=== PATIENT | male | born 1960 | race Caucasian/White ===

== ENCOUNTER 2020-03-25 08:41 | Outpatient (CLI) | payer BC, SELFPAY ==
--- NOTE | ~2020-03-25 | US_ITS ---
EXAMINATION: US thyroid DATE: 03/25/2020 09:29 INDICATION: Localized swelling, mass and lump, neck. TECHNIQUE: Multiple ultrasound images of the thyroid were obtained. COMPARISON: None. FINDINGS: The right thyroid lobe measures 5.2 x 1.7 x 1.6 cm. The left thyroid lobe measures 3.8 x 1.2 x 1.2 c m. In the right thyroid lobe, there is a 7 mm mixed cystic and solid, hypoechoic, [id number]-ghvz-vbgo no dule with smooth margin without echogenic foci (TI-RADS TR3). In the right thyroid lobe, there is a 6 mm mixed cystic and solid, hypoechoic, upsbg-jiii-aajy nodule with smooth margin without echogenic f oci (TR3). In the left thyroid lobe, there is a 6 mm solid, hypoechoic, yhwgt-[id number]-[id number] nodule with i ll-defined margin without echogenic foci (TR4). IMPRESSION: 1. Small thyroid nodules, likely not clinically significant. No follow-up is needed. Reviewed, dictated and finalized at location A. IMPRESSION: 1. Small thyroid nodules, likely not clinically significant. No follow-up is ne eded.
== END 2020-03-25 08:42 | disposition home or self-care (01) ==
PROVIDERS: PCP Family Medicine; Visit Provider Nurse Practitioner Family
DX: R22.1 Localized swelling, mass and lump, neck (principal); E04.2 Nontoxic multinodular goiter
CPT/HCPCS: 76536

== ENCOUNTER 2022-01-19 01:02 | Day surgery (SDC) | payer BC, SELFPAY ==
[2022-01-08 13:40] VITALS: BMI 26.6
--- NOTE | 2022-01-16 14:15 | PM.HPGS ---
History of Present Illness History of Present Illness Consent: Risks, benefits, and alternatives have been discussed and questions answered. Patient agrees to proceed with procedure. Chief complaint: neoplasm screening Narrative: Carrillo Whitley is a 61 year old male Referred for colon cancer screening. He is not certain when he had his last colonoscopy. Lately he has been seen blood in his stools. It is always bright red and he feels that his due to hemorrhoid Review of Systems Review of Systems: All systems reviewed & are unremarkable except as noted in HPI and below PMFSH Past Medical History Medical History BMI 26.0-26.9,adult Family History Family History Grandparent Family history of malignant neoplasm of breast Father Lung cancer COPD (chronic obstructive pulmonary disease) Bladder cancer Mother H/O cancer of gall bladder Sibling No problems noted. 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 Gender identity (if verbalized by the patient): Male Spiritual care concerns: No Meds Home Medications and Allergies Home Medications Medication Instructions Recorded Confirmed Type meloxicam 15 mg tablet 15 mg PO DAILY #30 tablet 01/05/22 01/19/22 Rx Allergies Allergy/AdvReac Type Severity Reaction Status Date / Time No Known Allergies Allergy Mild Verified 01/19/22 13:08 Exam Resp: Auscultation: clear to auscultation bilaterally Cardio: Rate: regular rate Rhythm: regular rhythm GI: GI Palp: Yes Soft to palpation and No Tenderness to palpation present (GI) Assessment and Plan Assessment and plan (1) Screening for malignant neoplasm of colon: Code(s): Z12.11 - Encounter for screening for malignant neoplasm of colon Status: Acute Assessment and Plan: Colonoscopy with possible biopsy or polypectomy or cautery or injection of substances.
[2022-01-19 13:09] VITALS: BP 146/78; PULSE 63; RESP 18; TEMP 36.4; O2SAT 99
[2022-01-19] MEDS: LACTATED RINGERS 1,000 ML 150 ML IV CONT (13:14)
--- NOTE | 2022-01-19 13:29 | P.PNAN_ITS ---
Anes - Initial Pre Proc Eval Procedure: Operation Date: 01/19/22 14:00 Proposed Procedures p Screening Colonoscopy - Chaitanya Pena MD Date/Time: 01/19/22 13:29 Surgeon: Chaitanya Pena MD Pre Op Diagnosis: neoplasm screening Patient Data Age: 61 Gender: M Height: 1.75 m Weight: 78.9 kg Last Vital Signs Temp 97.6 F 01/19/22 13:09 Pulse 63 01/19/22 13:09 Resp 18 01/19/22 13:09 BP 146/78 H 01/19/22 13:09 Pulse Ox 99 01/19/22 13:09 Allergies Allergy/AdvReac Type Severity Reaction Status Date / Time No Known Allergies Allergy Mild Verified 01/19/22 13:08 Home Medications Medication Instructions Recorded Confirmed Type meloxicam 15 mg tablet 15 mg PO DAILY #30 tablet 01/05/22 01/19/22 Rx Patient hx anesthesia problems: none Family hx anesthesia problems: none Results Review: All pre-operative results and documents have been reviewed as part of the pre-operative evaluation. [facility] Past Medical History Medical History BMI 26.0-26.9,adult Family History Family History Grandparent Family history of malignant neoplasm of breast Father Lung cancer COPD (chronic obstructive pulmonary disease) Bladder cancer Mother H/O cancer of gall bladder Sibling No problems noted. 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 Informed Consent: The patient's anesthetic plan and its attendant risks and benefits were discussed with the patient/family/POA. Questions were solicited and answers provided to the satisfaction of the patient/family/POA.
[2022-01-19 14:13] VITALS: BP 110/71; PULSE 66; RESP 16; O2SAT 97
[2022-01-19 14:23] VITALS: BP 118/76; PULSE 64; RESP 18; O2SAT 96
[2022-01-19 14:33] VITALS: BP 135/81; PULSE 70; RESP 20; O2SAT 96
== END 2022-01-19 14:54 | disposition home or self-care (01) ==
PROVIDERS: PCP Family Medicine; Visit Provider Internal Medicine Gastroenterology
PROC: 0DJD8ZZ Inspection of Lower Intestinal Tract, Via Natural or Artificial Opening Endoscopic (ICD-10-PCS; CPT 45378; principal; 2022-01-19 14:00)
DX: Z12.11 Encounter for screening for malignant neoplasm of colon (principal); K92.1 Melena; K64.4 Residual hemorrhoidal skin tags; K64.8 Other hemorrhoids; K57.30 Diverticulosis of large intestine without perforation or abscess without bleeding
CPT/HCPCS: 45378; J2704; J7120

== ENCOUNTER → 2022-05-07 14:59 | Outpatient (CLI) | payer BC, SELFPAY ==
--- NOTE | ~2022-05-07 | XR_ITS ---
EXAMINATION: XR chest 2V 05/07/2022 15:07 INDICATION: Cough PROCEDURE: 2 view chest COMPARISON: No prior studies for comparison. FINDINGS: The lungs are clear. The cardiomediastinal silhouette is within normal limits. There are no pleural effusions. There is no pneumothorax suspected. IMPRESSION: 1: NO ACUTE CARDIOPULMONARY DISEASE. Reviewed, dictated and finalized at location B.
== END ==
PROVIDERS: PCP Family Medicine; Visit Provider Nurse Practitioner Family
DX: R05.9 Cough, unspecified (principal)
CPT/HCPCS: 71046

== ENCOUNTER 2022-08-26 08:11 | Emergency (ER) | payer BC, SELFPAY ==
--- NOTE | ~2022-08-26 | XR_ITS ---
EXAMINATION: XR chest 2V 08/26/2022 09:00 INDICATION: Cough and wheezing. PROCEDURE: 2 view chest COMPARISON: 05/07/2022 FINDINGS: The lungs are clear. The cardiomediastinal silhouette is within normal limits. There are no pleural effusions. There is no pneumothorax suspected. There is asymmetry of the right apex, mos t likely prominent costal cartilage calcification of the first rib, although further evaluation with CT is recommended to exclude underlying parenchymal nodule. IMPRESSION: 1: Asymmetry of the right apex, most likely prominent costal cartilage calcification of the first ri b, although further evaluation with CT is recommended to exclude underlying parenchymal nodule. Reviewed, dictated and finalized at location A. D ADVISOR IMPRESSION: 1: Asymmetry of the right apex, most likely prominent costal cartilage calcifi cation of the first rib, although further evaluation with CT is recommended to exclude underlying parenchymal nodule.
[2022-08-26 08:18] VITALS: BP 142/90; PULSE 92; RESP 16; TEMP 37.4; O2SAT 98
--- NOTE | 2022-08-26 08:37 | ED.URI ---
HPI - URI/Sore Throat General Chief Complaint: Upper Respiratory Infection Stated Complaint: COUGH/SINUS DRAINAGE/CONGESTION/CHILLS/SWEATS Time Seen by Provider: 08/26/22 08:38 Source: patient and RN notes reviewed Mode of arrival: ambulatory Limitations: no limitations History of Present Illness HPI Narrative: 61-year-old male presented for complaint of cough with associated sinus congestion, fevers/chills for 4 days. He endorses at the onset he felt a scratchy throat and has continued to have severe episodes of coughing which resulted in shortness of breath and wheezing. He denies shortness of breath or wheezing with exertion. Endorses waking with sweaty/clammy skin. He denies chest pain, palpitations, nausea, vomiting, diarrhea. Endorses temperature has been at the highest 99.5. Taking ibuprofen about 3 times a day for symptoms. MD elicited complaint: cough Related Data Allergies Allergy/AdvReac Type Severity Reaction Status Date / Time No Known Allergies Allergy Mild Verified 05/07/22 07:47 Review of Systems Review of Systems: CONSTITUTIONAL: denies malaise EYES: Denies visual changes, redness, or discharge ENT: Reports rhinorrhea, congestion, denies otalgia, sore throat CARDIOVASCULAR: Denies chest pain, palpitations, edema RESPIRATORY: per HPI GASTROINTESTINAL: Denies abdominal pain, nausea, vomiting, diarrhea SKIN: Denies rash or itching MUSCULOSKELETAL: Denies myalgia PMFSH Past Medical History Medical History BMI 25.0-25.9,adult BMI 26.0-26.9,adult Family History Family History Grandparent Family history of malignant neoplasm of breast Father Lung cancer COPD (chronic obstructive pulmonary disease) Bladder cancer Mother H/O cancer of gall bladder Sibling No problems noted. 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 TMs pearly garcía with dull light reflex bilaterally; no tragal tenderness. Oropharynx normal without lesions or exudate, no drooling, no hoarseness, no trismus, uvula midline. CHEST: End inspiratory wheezing throughout all shukla. Unlabored. No respiratory distress, speaks in full sentences. HEART: Regular rate and rhythm. No murmur heard. SKIN: Warm, dry, no rash. NEURO: Alert and oriented x3. PSYCH: Normal mood and affect Course Course Emergency Course: Patient is aware of diagnosis, understands and agrees to treatment plan. Anticipatory guidance given. Patient agrees to follow-up as directed and is aware of reasons to seek care at the emergency department. Portions of this record may have been created with voice recognition software Level of Care: Express Care Visit Vital Signs Vital signs: Vital Signs Temperature 99.4 F 08/26/22 08:18 Pulse Rate 92 08/26/22 08:18 Respiratory Rate 16 08/26/22 08:18 Blood Pressure 142/90 H 08/26/22 08:18 Pulse Oximetry 98 08/26/22 08:18 Oxygen Delivery Room Air 08/26/22 08:18 Temperature 99.4 F 08/26/22 08:18 Pulse Rate 92 08/26/22 08:18 Respiratory Rate 16 08/26/22 08:18 Blood Pressure 142/90 H 08/26/22 08:18 Pulse Oximetry 98 08/26/22 08:18 Oxygen Delivery Room Air 08/26/22 08:18 reviewed MDM - URI/Sore Throat MDM Narrative Medical decision making narrative: Chest x-ray result reviewed with patient. Advised to f/u with pcp regarding result. Advised supportive measures
== END 2022-08-26 09:23 | disposition home or self-care (01) ==
PROVIDERS: Emergency Provider Nurse Practitioner Family; PCP Family Medicine
DX: J40 Bronchitis, not specified as acute or chronic (principal); R91.8 Other nonspecific abnormal finding of lung field
CPT/HCPCS: 71046; 99213; G0463

== ENCOUNTER → 2022-09-17 09:10 | Outpatient (CLI) | payer BC, SELFPAY ==
--- NOTE | ~2022-09-17 | CT_ITS ---
EXAMINATION: CT chest high resolution wo ne DATE: 09/17/2022 09:24 INDICATION: Lung nodule TECHNIQUE: Computed tomography (CT) of the chest was performed without intravenous contrast. The dose -length product (DLP) was 296.43 mGy-cm. Automated exposure control and iterative reconstruction tech [employer] were employed. COMPARISON: 08/26/2022 FINDINGS: The lungs are free of acute opacities. No pleural effusion or pneumothorax. Scattered small pulmonary nodules measure up to 3 mm. There is hypertrophic change at the right first rib costochond ral junction accounting for the radiographic finding in question. No pathologically enlarged thoracic lymph nodes are identified. The heart size is normal. Calcified coronary artery atherosclerosis is n oted. There is mild thoracic spondylosis. IMPRESSION: 1. Hypertrophic change at the right first rib costochondral junction accounting for the radiographic finding in question. 2. Scattered small pulmonary nodules measuring up to 3 mm. If the patient has no risk factors for mal ignancy, no further follow up is required. If there are risk factors for malignancy (i.e., history o f smoking, asbestos or radiation exposure), consider followup CT in 12 months. Reviewed, dictated and finalized at location L. RAL PRODUCTION MANAGER IMPRESSION: 1. Hypertrophic change at the right first rib costochondral junction accounting for the radiographic finding in question. 2. Scattered small pulmonary nodules measuring up to 3 mm. If the patient has n o risk factors for malignancy, no further follow up is required. If there are risk factors for malignancy (i.e., history of smoking, asbestos or radiation ex posure), consider followup CT in 12 months.
== END ==
PROVIDERS: PCP Family Medicine; Visit Provider Nurse Practitioner Family
DX: R91.8 Other nonspecific abnormal finding of lung field (principal); R93.89 Abnormal findings on diagnostic imaging of other specified body structures
CPT/HCPCS: 71250

== ENCOUNTER 2023-04-05 12:41 | Emergency (ER) | payer BC, SELFPAY ==
--- NOTE | ~2023-04-05 | CT_ITS ---
EXAMINATION: CT abdomen pelvis wo con DATE: 04/05/2023 15:46 INDICATION: Left flank pain. Hematuria. TECHNIQUE: Computed tomography (CT) of the abdomen and pelvis was performed without intravenous contr ast. Automated exposure control and iterative reconstruction technique were employed. The dose-length product was 585.70 mGy-cm. COMPARISON: CT abdomen pelvis 07/29/2008 FINDINGS: The visualized portions of the lung bases demonstrate mild peripheral reticular opacities, likely chronic lung disease. There is a 3 mm nodule in right lower lobe, likely benign. No pleural ef fusion. The heart size is normal. No pericardial effusion. There is diffuse hepatic steatosis. The ga llbladder, spleen, pancreas, adrenal glands, and right kidney are normal. There are 3 stones in left kidney measuring up to 2 mm. There is a 3 mm stone at left ureterovesicular junction. There is mild l eft hydroureter. The prostate is mildly enlarged. There is a right inguinal hernia containing fat. Th ere is diverticulosis of the colon without evidence of diverticulitis. There are no dilated loops of bowel. The appendix is normal. There are no pathologically enlarged lymph nodes. There is no free int raperitoneal fluid. There is mild thoracic and lumbar spondylosis. IMPRESSION: 1. 3 mm stone at left ureterovesicular junction with mild left hydroureter. 2. Small nonobstructing left kidney stones. Reviewed, dictated and finalized at location A.
[2023-04-05 13:01] VITALS: BP 130/88; PULSE 77; RESP 18; TEMP 36.4; O2SAT 95
[2023-04-05 13:16] LABS: Basophils Percent Auto 0.6 % (0.2-1.2); Eosinophils Absolute Auto 0.1 K/mm3 (0-0.3); Eosinophils Percent Auto 1.9 % (0-4.4); Hematocrit 48.3 % (42.0-52.0); Hemoglobin 16.3 g/dL (14.0-18.0); Immature Granulocyte Absolute 0.02 K/mm3 (0.00-0.031); Immature Granulocyte Percent A 0.3 % (0-0.5); Lymphocytes Absolute Auto 2.37 K/mm3 (0.9-3.2); Lymphocytes Percent Auto 34.3 % (18.3-44.2); Mean Corpuscular HGB Conc 33.7 g/dl (32-36); Mean Corpuscular Hemoglobin 29.6 pg (26-34); Mean Corpuscular Volume 87.8 fl (80-100); Mean Platelet Volume 9.4 fl (7.4-10.4); Monocytes Absolute Auto 0.7 K/mm3 (0.1-0.6); Monocytes Percent Auto 9.7 % (2.6-8.5); Neutrophils Absolute Auto 3.7 K/mm3 (1.3-6.7); Neutrophils Percent Auto 53.2 % (45.5-73.1); Platelet Count Result 183 k/mm3 (150-375); Red Cell Distribution Width 13.6 % (11.5-14.5); White Blood Count 6.9 K/mm3 (4.5-10.0)
[2023-04-05 13:29] LABS: Alanine Aminotransferase 40 U/L (6-50); Albumin Level 4.6 g/dL (3.5-5.1); Alkaline Phosphatase 98 U/L (38-126); Anion Gap 14 mmol/L (8-16); Aspartate Amino Transferase 38 U/L (17-59); Bilirubin,Total 0.6 mg/dL (0.2-1.3); Blood Urea Nitrogen 16 mg/dL (9-20); Calcium 9.5 mg/dL (8.4-10.2); Carbon Dioxide 23 mmol/L (22-30); Chloride 106 mmol/L (98-107); Estimated CRCL calculation 66 ml/min; Estimated Glomerular Filt Rate > 60; Glucose 106 mg/dL (65-110); Potassium 3.7 mmol/L (3.4-5.0); Sodium 143 mmol/L (137-145)
[2023-04-05 13:57] LABS: Appearance Urine Cloudy (Clear); Bacteria Urine None Seen /hpf; Bilirubin Urine Negative (Negative); Blood Urine 3+ (Negative); Color Urine Yellow (Yellow); Glucose Urine UA Negative (Negative); Ketones Urine Negative (Negative); Leukocyte Esterase Ur Negative LEU/UL (Negative); Nitrate Urine Negative (Negative); Non Pathogenic Casts 0-2; Protein Urine Trace mg/dL (Negative); RBC Urine >100 /hpf (0-2); Specific Grav Ur 1.022 (1.001-1.035); Squamous Epithelial Cell Urine None seen /hpf (Few); Urobilinogen Urine 0.2 mg/dL (<2.0); WBC Urine 0-5 /hpf
[2023-04-05 14:12] LABS: Add Urine Microscopic? YES
[2023-04-05 14:51] VITALS: BP 140/83; PULSE 60; PULSE 69; RESP 15; TEMP 36.3; O2SAT 100; O2SAT 97
[2023-04-05 15:00] VITALS: PULSE 65; RESP 16; O2SAT 96
[2023-04-05 15:01] VITALS: BP 137/83; PULSE 62; RESP 12; O2SAT 100
[2023-04-05 15:15] VITALS: PULSE 68; RESP 15; O2SAT 97
--- NOTE | 2023-04-05 16:14 | ED.GENADULT ---
HPI - General Adult General Chief complaint: Urogenital-Male Stated complaint: possible kidney stone Time Seen by Provider: 04/05/23 15:36 Source: patient, RN notes reviewed and old records reviewed Mode of arrival: ambulatory Limitations: no limitations History of Present Illness HPI narrative: THis is a 62 year old male who presents for evaluation of left flank pain. Patient developed left flank pain yesterday. He states his pain has been waxing and waning. It became severe today and he states it radiated to his left lower abdominal . He denies associated nausea, vomiting, fever or chills. He reports his pain is only mild now. He rates his pain 3/1 0 currently. He has not taken any medication for pain today. Related Data Allergies Allergy/AdvReac Type Severity Reaction Status Date / Time No Known Allergies Allergy Mild Verified 04/05/23 14:58 Review of Systems Review of Systems: All systems reviewed & are unremarkable except as noted in HPI and below Constitutional: Constitutional: Denies weakness Cardiovascular: Cardiovascular: Denies syncope, Denies rapid heart rate, Denies irregular heart rhythm, Denies leg edema and Denies dyspnea Respiratory: Respiratory: Denies chest congestion, Denies hemoptysis, Denies excessive phlegm production and Denies dyspnea Gastrointestinal: Gastrointestinal: Denies abdominal pain, Denies hematochezia, Denies diarrhea and Denies vomiting Genitourinary: Genitourinary: Denies hematuria, Denies dysuria, Denies penile discharge and Denies testicular pain Musculoskeletal: Musculoskeletal: Denies joint swelling, Denies loss of height and Denies muscle weakness Neurologic: Denies syncope, Denies focal weakness and Denies weakness [facility] Past Medical History Medical History (Updated 04/05/23 @ 17:14 by Carol Brizuela MD) BMI 25.0-25.9,adult BMI 26.0-26.9,adult BMI 27.0-27.9,adult Calculus of distal left ureter History of kidney stones Family History Family History Grandparent Family history of malignant neoplasm of breast Father Lung cancer COPD (chronic obstructive pulmonary disease) Bladder cancer Mother H/O cancer of gall bladder Sibling No problems noted. 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 Gender identity (if verbalized by the patient): Male Spiritual care concerns: No Exam Const: General: no acute distress and alert Nutritional Appearance: well nourished Orientation/consciousness: patient oriented x3 HENMT: Head: normal to inspection Eyes: EOM: EOMs intact bilaterally Chest: Chest palpation & inspection: normal inspection of the chest Resp: Effort & Inspection: normal respiratory effort Auscultation: clear to auscultation bilaterally Cardio: Rate: regular rate Rhythm: regular rhythm Heart sounds: no murmurs GI: GI Palp: Yes Soft to palpation, No Tenderness to palpation present (GI), No Guarding due to palpation present (GI) and No Rigid due to palpation Auscultation: normal bowel sounds Back/Spine/Pelvis: Back: no CVA tenderness Skin: General skin exam: normal color Rashes: no rashes Wounds: no wounds Neuro: General: patient oriented x3, moves all extremities and CN's II-XI intact bilat
[2023-04-05] MEDS: ONDANSETRON INJ 4 MG/2 ML VIAL IV PUSH (16:42)
[2023-04-05] MEDS: KETOROLAC 30 MG/ML VIAL (*BKC) IV PUSH (16:42)
[2023-04-05] MEDS: TAMSULOSIN HCL 0.4 MG CAPSULE PO (16:43)
[2023-04-05 17:19] VITALS: BP 142/84; PULSE 84; RESP 16; O2SAT 99
== END 2023-04-05 17:21 | disposition home or self-care (01) ==
PROVIDERS: Emergency Provider General Practice; PCP Family Medicine
DX: N20.1 Calculus of ureter (principal); Z87.442 Personal history of urinary calculi
CPT/HCPCS: 36415; 74176; 80053; 81001; 85025; 96374; 96375; 99284; A9270; J1885; J2405

== ENCOUNTER 2023-04-05 23:10 | Observation (INO) | payer BC, SELFPAY ==
--- NOTE | ~2023-04-05 | XR_ITS ---
EXAMINATION: XR fluoroscopy no charge DATE: 04/06/2023 07:24 INDICATION: Left ureteral stone. TECHNIQUE: 4 intraoperative fluoroscopic views of the abdomen and pelvis were obtained. I wasn't pres ent. Fluoroscopy exposure time was 14 seconds. COMPARISON: CT abdomen and pelvis 04/05/2023 FINDINGS: Images demonstrate a wire in the left ureter. IMPRESSION: 1. Wire in the left ureter. Reviewed, dictated and finalized at location A. IMPRESSION: 1. Wire in the left ureter.
[2023-04-05 23:13] VITALS: BP 143/62; PULSE 98; RESP 16; TEMP 36.3; O2SAT 100
[2023-04-05 23:56] VITALS: BP 116/70; PULSE 81; RESP 16; TEMP 36.4; O2SAT 100
[2023-04-06] VITALS (15 sets, daily range): BP systolic 96–149; BP diastolic 53–82; PULSE 69–86; RESP 12–20; TEMP 36.1–37.1; O2SAT 96–100; BMI 26.7
[2023-04-06 00:04] LABS: Basophils Percent Auto 0.3 % (0.2-1.2); Eosinophils Absolute Auto 0.1 K/mm3 (0-0.3); Eosinophils Percent Auto 0.5 % (0-4.4); Hematocrit 45.5 % (42.0-52.0); Hemoglobin 15.3 g/dL (14.0-18.0); Immature Granulocyte Absolute 0.03 K/mm3 (0.00-0.031); Immature Granulocyte Percent A 0.3 % (0-0.5); Lymphocytes Absolute Auto 1.19 K/mm3 (0.9-3.2); Lymphocytes Percent Auto 12.6 % (18.3-44.2); Mean Corpuscular HGB Conc 33.6 g/dl (32-36); Mean Corpuscular Hemoglobin 29.3 pg (26-34); Mean Platelet Volume 9.4 fl (7.4-10.4); Monocytes Absolute Auto 0.7 K/mm3 (0.1-0.6); Monocytes Percent Auto 7.3 % (2.6-8.5); Neutrophils Absolute Auto 7.5 K/mm3 (1.3-6.7); Platelet Count Result 166 k/mm3 (150-375); Red Blood Count 5.23 M/mm3 (4.6-6.20); Red Cell Distribution Width 13.3 % (11.5-14.5); White Blood Count 9.4 K/mm3 (4.5-10.0)
[2023-04-06 00:18] LABS: Alanine Aminotransferase 39 U/L (6-50); Albumin Level 4.6 g/dL (3.5-5.1); Alkaline Phosphatase 101 U/L (38-126); Anion Gap 10 mmol/L (8-16); Aspartate Amino Transferase 39 U/L (17-59); Bilirubin,Total 0.7 mg/dL (0.2-1.3); Blood Urea Nitrogen 22 mg/dL (9-20); Calcium 9.6 mg/dL (8.4-10.2); Carbon Dioxide 24 mmol/L (22-30); Chloride 107 mmol/L (98-107); Estimated CRCL calculation 51 ml/min; Estimated Glomerular Filt Rate 56; Glucose 134 mg/dL (65-110); Potassium 3.4 mmol/L (3.4-5.0); Sodium 141 mmol/L (137-145)
--- NOTE | 2023-04-06 00:26 | ED.GENADULT ---
HPI - General Adult General Chief complaint: Urogenital-Male Stated complaint: kidney Time Seen by Provider: 04/05/23 23:51 Source: patient Mode of arrival: ambulatory Limitations: no limitations History of Present Illness HPI narrative: This is a 62-year-old male who presents to the ED with chief complaint of left flank and left abdominal pain after being diagnosed with a kidney stone earlier today in the emergency department. Reports intermittent nausea with no vomiting. Reports that he has been taking his [place], Toradol and Zofran as prescribed with minimal relief. He states that he was given prescription for Flomax but they did not dispense at the pharmacy and he is not sure why. He states that he has not been able to urinate since leaving the department earlier. Denies fevers, chills. Related Data Allergies Allergy/AdvReac Type Severity Reaction Status Date / Time No Known Allergies Allergy Mild Verified 04/05/23 23:15 [facility] Past Medical History Medical History (Updated 04/06/23 @ 02:04 by Luis Carlos Harmon PA-C) BMI 25.0-25.9,adult BMI 26.0-26.9,adult BMI 27.0-27.9,adult Calculus of distal left ureter History of kidney stones Family History Family History Grandparent Family history of malignant neoplasm of breast Father Lung cancer COPD (chronic obstructive pulmonary disease) Bladder cancer Mother H/O cancer of gall bladder Sibling No problems noted. 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 Doubled over in the bed. HEAD: Normocephalic, atraumatic. EYES: PERRLA and EOMI. ENT: Nares clear, no rhinorrhea or epistaxis. Mucous membranes moist. Oropharynx without tonsillar hypertrophy exudate or other lesions. NECK: Supple. No adenopathy or masses. CHEST: No respiratory distress. Clear to auscultation. No wheezes rales or rhonchi HEART: Regular rate and rhythm. No murmur heard. Normal peripheral pulses. ABDOMEN: Left flank tenderness. Soft, nontender, nondistended, normal active bowel sounds. MSK: Normal range of motion. No edema. SKIN: Warm, dry, no rash. NEURO: Alert and oriented x3. No focal deficits. PSYCH: Normal mood and affect. Course Vital Signs Vital signs: Vital Signs Temperature 97.3 F L 04/05/23 23:13 Pulse Rate 98 04/05/23 23:13 Respiratory Rate 16 04/05/23 23:13 Blood Pressure 143/62 H 04/05/23 23:13 Pulse Oximetry 100 04/05/23 23:13 Oxygen Delivery Room Air 04/05/23 23:13 Temperature 97.5 F L 04/05/23 23:56 Pulse Rate 84 04/06/23 02:53 Respiratory Rate 16 04/06/23 02:53 Blood Pressure 131/58 L 04/06/23 02:53 Pulse Oximetry 99 04/06/23 02:53 Oxygen Delivery Room Air 04/05/23 23:13 Medical Decision Making MDM Narrative Medical decision making narrative: This is a 62-year-old male who presents to the ED for chief complaint of left flank pain and left lower quadrant pain with kidney stone diagnosed earlier today. He was in this department. He picked up his prescriptions but they did not help with the pain. Vitals again are within normal limits. Af
[2023-04-06] MEDS: SODIUM CHLORIDE 0.9% IV 1,000 ML 999 ML IV CONT (00:28)
[2023-04-06] MEDS: MORPHINE SULFATE (*CRX) 4 MG/ML INJ IV PUSH (00:28)
[2023-04-06] MEDS: fentaNYL CITRATE INJ (*CRX) 100 MCG/2 ML VIAL 50 MCG IV PUSH ×2 (01:11→04:48)
[2023-04-06] MEDS: SODIUM CHLORIDE 0.9% IV 1,000 ML 125 ML IV CONT (02:15)
[2023-04-06] MEDS: KETOROLAC 15 MG/ML VIAL (*BKC) IV PUSH (02:17)
--- NOTE | 2023-04-06 03:13 | PC.NURSE ---
Patient was dropping to low 90s and upper 80s for SPO2. 1L/min oxygen applied via nasal cannula. Patient's SPO2 is now 98%
--- NOTE | 2023-04-06 05:12 | ADMGEN ---
This patient, Carrillo Whitley, was admitted to Medical Room 254-01. Patient/family oriented to hospital policies and general routines including ID bracelet, bed and alarms, visiting hours, pain management, procedures, bathroom and other care routines, personal items, smoking policy, room service/diet, and visiting hours. Information on how to activate the Rapid Response Team has been discussed. Patient/Family are encouraged to report perceived risks to care and to ask questions if they do not understand what they are told or what they should do.
--- NOTE | 2023-04-06 05:50 | PM.IMHP ---
H&P: [facility] History of Present Illness Date/Time: 04/06/23 05:50 Chief Complaint: Left flank pain Narrative: 62-year-old male with a history of 1 prior ureteral stone that required endoscopic extraction approximately 10 years ago. Yesterday was in the ER twice with left flank pain and irritable voiding symptoms. He denied fevers chills or gross hematuria. Imaging demonstrates a 3 mm distal ureteral calculus. On the 2nd presentation he was admitted for hydration and analgesics. He continues to have considerable pain this morning. After discussion of options he has elected for left ureteroscopy stone extraction. He is aware the risk including, but not limited to, adverse cardiopulmonary events, need for additional procedures and stent placement. Review of Systems Review of Systems: All systems reviewed & are unremarkable except as noted in HPI and below [facility] Past Medical History Medical History (Updated 04/06/23 @ 02:04 by Luis Carlos Harmon PA-C) BMI 25.0-25.9,adult BMI 26.0-26.9,adult BMI 27.0-27.9,adult Calculus of distal left ureter History of kidney stones Family History Family History Grandparent Family history of malignant neoplasm of breast Father Lung cancer COPD (chronic obstructive pulmonary disease) Bladder cancer Mother H/O cancer of gall bladder Sibling No problems noted. 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 Gender identity (if verbalized by the patient): Male Spiritual care concerns: No Meds Home Medications and Allergies Home Medications Medication Instructions Recorded Confirmed Type albuterol sulfate 90 mcg/actuation 2 inh inhalation QID PRN shortness 08/26/22 04/06/23 Rx aerosol inhaler of breath or wheezing #8.5 grams hydrocodone 5 mg-acetaminophen 325 1 tablet PO Q6H PRN pain #10 tabs 04/05/23 04/06/23 Rx mg tablet ketorolac 10 mg tablet 10 mg PO Q6H PRN pain 5 days #10 04/05/23 04/06/23 Rx tabs ondansetron 4 mg disintegrating 4 mg PO Q6H PRN nausea and 04/05/23 04/06/23 Rx tablet vomiting #14 tabs tamsulosin 0.4 mg capsule (Flomax) 0.4 mg PO DAILY #7 caps 04/05/23 04/06/23 Rx fluticasone 100 mcg-salmeterol 50 1 inh inhalation DAILY PRN 04/06/23 04/06/23 History mcg/dose blistr powdr for Shivering inhalation (Wixela Inhub) Allergies Allergy/AdvReac Type Severity Reaction Status Date / Time No Known Allergies Allergy Mild Verified 04/05/23 23:15 Vital Signs Vital Signs - 24 hr 04/05/23 23:13 04/05/23 23:56 04/06/23 02:53 Temperature 97.3 F L 97.5 F L Pulse Rate 98 81 84 Respiratory Rate 16 16 16 Blood Pressure 143/62 H 116/70 131/58 L Pulse Oximetry 100 100 99 Oxygen Delivery Room Air Oxygen Flow Rate 04/06/23 00:32 04/06/23 00:46 04/06/23 01:01 Temperature Pulse Rate Respiratory Rate Blood Pressure 109/80 130/56 L 142/61 H Pulse Oximetry Oxygen Delivery Oxygen Flow Rate 04/06/23 01:31 04/06/23 03:13 04/06/23 04:29 Temperature Pulse Rate 74 Respiratory Rate 16 Blood Pressure 96/53 L 127/59 L Pulse Oximetry 100 99 Oxygen Delivery Nasal Cannula Oxygen Flow Rate 1 04/06/23 04:44 04/06/23 05:00 Temperature 97.0 F L Pulse Rate 77
--- NOTE | 2023-04-06 06:10 | WPDHPUPDATE1 ---
History and Physical Update Update Date/Time: 04/06/23 06:10 History and Physical has been reviewed, including an updated exam of the patient. There are NO changes in the patient's condition. Risks, benefits, and alternatives have been discussed and questions answered. Patient agrees to proceed with procedure.
--- NOTE | 2023-04-06 06:28 | PC.NURSE ---
Patient off of floor via stretcher and surgery staff for procedure at 0615. with patient and aware.
--- NOTE | 2023-04-06 06:56 | WPDANESEPPF ---
Anes - Initial Pre Proc Eval Procedure: Operation Date: 04/06/23 07:00 Proposed Procedures p Cystoscopy,Left Ureteroscopy,Stone Extraction - Anatoliy Bradley MD Date/Time: 04/06/23 06:56 Surgeon: Yan Todd MD Pre Op Diagnosis: Left UVJ stone, intractable pain Patient Data Age: 62 Gender: M Height: 1.75 m Weight: 82.2 kg Last Vital Signs Temp 36.3 C L 04/06/23 06:33 Pulse 75 04/06/23 06:33 Resp 16 04/06/23 06:33 BP 149/60 H 04/06/23 06:33 Pulse Ox 100 04/06/23 06:33 O2 Del Method Room Air 04/06/23 06:33 O2 Flow Rate 1 04/06/23 03:13 Allergies Allergy/AdvReac Type Severity Reaction Status Date / Time No Known Allergies Allergy Mild Verified 04/05/23 23:15 Home Medications Medication Instructions Recorded Confirmed Type albuterol sulfate 90 mcg/actuation 2 inh inhalation QID PRN shortness 08/26/22 04/06/23 Rx aerosol inhaler of breath or wheezing #8.5 grams hydrocodone 5 mg-acetaminophen 325 1 tablet PO Q6H PRN pain #10 tabs 04/05/23 04/06/23 Rx mg tablet ketorolac 10 mg tablet 10 mg PO Q6H PRN pain 5 days #10 04/05/23 04/06/23 Rx tabs ondansetron 4 mg disintegrating 4 mg PO Q6H PRN nausea and 04/05/23 04/06/23 Rx tablet vomiting #14 tabs tamsulosin 0.4 mg capsule (Flomax) 0.4 mg PO DAILY #7 caps 04/05/23 04/06/23 Rx fluticasone 100 mcg-salmeterol 50 1 inh inhalation DAILY PRN 04/06/23 04/06/23 History mcg/dose blistr powdr for Shivering inhalation (Wixela Inhub) Laboratory Tests 04/05/23 23:59 WBC 9.4 K/mm3 (4.5-10.0) RBC 5.23 M/mm3 (4.6-6.20) Hgb 15.3 g/dL (14.0-18.0) Hct 45.5 % (42.0-52.0) MCV 87.0 fl (80-100) MCH 29.3 pg (26-34) MCHC 33.6 g/dl (32-36) RDW 13.3 % (11.5-14.5) Plt Count 166 k/mm3 (150-375) MPV 9.4 fl (7.4-10.4) Immature Gran % (Auto) 0.3 % (0-0.5) Neut % (Auto) 79.0 H % (45.5-73.1) Lymph % (Auto) 12.6 L % (18.3-44.2) Dixon % (Auto) 7.3 % (2.6-8.5) Eos % (Auto) 0.5 % (0-4.4) Baso % (Auto) 0.3 % (0.2-1.2) Lymph # (Auto) 1.19 K/mm3 (0.9-3.2) Dixon # (Auto) 0.7 H K/mm3 (0.1-0.6) Eos # (Auto) 0.1 K/mm3 (0-0.3) Baso # (Auto) 0.0 K/mm3 (0.0-0.1) Abs Immat Gran (auto) 0.03 K/mm3 (0.00-0.031) Absolute Neuts (auto) 7.5 H K/mm3 (1.3-6.7) Absolute Nucleated RBC 0.0 K/mm3 (0.0-0.012) Nucleated RBC % 0.0 % (0.0-0.2) Sodium 141 mmol/L (137-145) Potassium 3.4 mmol/L (3.4-5.0) Chloride 107 mmol/L (98-107) Carbon Dioxide 24 mmol/L (22-30) Anion Gap 10 mmol/L (8-16) BUN 22 H mg/dL (9-20) Creatinine 1.30 mg/dL (0.7-1.3) Estim Creat Clear Calc 51 ml/min Estimated GFR 56 L (59 - ) Glucose 134 H mg/dL (65-110) Calcium 9.6 mg/dL (8.4-10.2) Total Bilirubin 0.7 mg/dL (0.2-1.3) AST 39 U/L (17-59) ALT 39 U/L (6-50) Alkaline Phosphatase 101 U/L (38-126) Total Protein 8.0 g/dL (6.3-8.2) Albumin 4.6 g/dL (3.5-5.1) Patient hx anesthesia problems: none Family hx anesthesia problems: none Results Review: All pre-operative results and documents have been reviewed as part of the pre-operative evaluation. [facility] Past Medical History Medical History BMI 25.0-25.9,adult BMI 26.0-26.9,adult BMI 27.0-27.9,adult Calculus of distal left ureter History of kidney stones Family History Family History Grandparent Family history of malignant neoplasm of breast Father Lung cancer COPD (chronic obstructive pulmonary disease) Bladder cancer Mother H/O cancer of gall bladder Sibling No problems noted. Other Diabetes mellitus Hypertension Social History Social History Smoking status: Never smoker [facility]
[2023-04-06] MEDS: LACTATED RINGERS 1,000 ML 30 ML IV CONT (07:01)
--- NOTE | 2023-04-06 07:22 | W.PM.PROC2 ---
Procedure Note - Detailed Date of Procedure 04/06/23 Pre-op Diagnosis Left UVJ stone, intractable pain Post-op Diagnosis Same Procedure Performed Cystoscopy left ureteroscopy with stone extraction Surgeon Anatoliy Bradley MD Anesthesia General Description of Procedure The patient was brought to the operative suite where he is prepped and draped in a routine sterile fashion while in the dorsal lithotomy position after the uneventful induction of a general LMA anesthetic. A 19F rigid cystoscope was placed in the bladder. There are no urethral strictures. His prostatic urethra measures, approximately, 1.5cm with no median lobe enlargement. The bladder mucosa was endoscopically normal without hyperemia or neoplasm. There was a single, orthotopic ureteral orifice bilaterally. A 0.035 glidewire was advanced into the left renal pelvis under fluoroscopy. The distal ureter was dilated with an 8F/10F ureteral dilator. Ureteroscopy was undertaken with a short, tapered, semi-rigid ureteroscope and the stone was extracted with ease using a 1.9F Escape disposable stone basket. Due to the ease of this manipulation I opted not to place a ureteral stent. The patient's bladder was emptied and was taken to the recovery room having tolerated this procedure well. Urine Output 0 Drains No Packing No Pathology Yes
[2023-04-06] MEDS: KETOROLAC 30 MG/ML VIAL (*BKC) IV PUSH (07:35)
--- NOTE | 2023-04-06 09:00 | PC.NURSE ---
pt got back up to the floor from surgery.
--- NOTE | 2023-04-26 16:36 | PM.DS ---
DS: Admitting Diagnosis Discharge Date 04/06/23 Admitting Diagnosis Left ureteral stone DS: Discharge Diagnosis Discharge Diagnosis (1) Calculus of distal left ureter: Code(s): N20.1 - Calculus of ureter Status: Acute DS: Summary Hospital Course Hospital Course: kasia pradhanman who was admitted 1 evening with an obstructing painful distal ureteral calculus. Overnight he continued to have pain. The following morning we did a simple endoscopic stone extraction. Thereafter he was comfortable and tolerating a diet. Time Spent with Patient Time attestation: Total time spent providing and/or coordinating discharge services: Exam Const: General: no acute distress Resp: Effort & Inspection: normal respiratory effort GI: Inspection: non-distended GI Palp: No abdominal tenderness and No Guarding due to palpation present (GI) Auscultation: normal bowel sounds DS: Data Data Completed and Pending Completed studies during hospitalization: Pending at discharge 04/06/23 07:22 Surgical [PTH] Routine Discharge Plan Discharge Attending physician on discharge: Anatoliy Bradley Consulting providers: Syeda Arguello; Robinson Brantley Discharging Clinician: Syeda Arguello Anticipated Discharge Date/Time: 04/06/23 14:59 Patient Disposition: Home, Self-Care Activity: may shower and unlimited Diet: as tolerated Discharge Instructions: Patient to follow up in 1 month for post operative follow up with a renal ultrasound prior to the visit to ensure hydronephrosis has resolved. Call the office or go to the ER if you develop a fever, severe abdominal pain, flank pain, blood in the urine, burning with urination. Patient Instructions: Antibiotic Form Stand Alone Forms: General Discharge Information Follow-up/Referrals: Yan Todd MD [Physician] - Discharge Medications: Continued albuterol sulfate 90 mcg/actuation HFA aerosol inhaler 2 inh inhalation QID PRN (Reason: shortness of breath or wheezing) Qty: 8.5 0RF ondansetron 4 mg tablet,disintegrating 4 mg PO Q6H PRN (Reason: nausea and vomiting) Qty: 14 0RF ketorolac 10 mg tablet 10 mg PO Q6H PRN (Reason: pain) 5 Days Qty: 10 0RF tamsulosin [Flomax] 0.4 mg capsule 0.4 mg PO DAILY Qty: 7 0RF hydrocodone-acetaminophen 5-325 mg tablet 1 tablet PO Q6H PRN (Reason: pain) Qty: 10 0RF fluticasone propion-salmeterol [Wixela Inhub] 100-50 mcg/dose blister with device 1 inh inhalation DAILY PRN (Reason: Shortness Of Breath) Other Ambulatory Orders: US renal BI (Routine) Timeframe: 1 Month Location: Determined by Patient Ordered By: Syeda Arguello Date of admission: 04/06/23 01:57 Primary Care Provider: Amos Tirado Admitting Provider: Anatoliy Bradley Attending physician on admission: Anatoliy Bradley Condition: Stable
== END 2023-04-06 15:35 | disposition home or self-care (01) ==
LOC: ANHED 04-06 02:04 → ANH2MED 04-06 06:07 → ANH3MEDSUR 04-07 10:10
PROVIDERS: Preventive Medicine Aerospace Medicine; Admitting Provider Urology; Emergency Provider Physician Assistant; PCP Family Medicine; Visit Provider Urology
PROC: (CPT 52352; principal; 2023-04-06 07:00)
DX: N20.1 Calculus of ureter (principal); E66.3 Overweight; Z68.26 Body mass index [BMI] 26.0-26.9, adult; Z79.51 Long term (current) use of inhaled steroids; Z79.891 Long term (current) use of opiate analgesic
CPT/HCPCS: 52352; 36415; 80053; 82365; 85025; 88300; 96365; 96375; 96376; 99199; 99285; C1769; G0378; J0696; J1100; J1885; J2250; J2270; J2405; J2704; J3010; J7030; J7120

== ENCOUNTER 2023-05-25 13:50 | Outpatient (CLI) | payer BC, SELFPAY ==
--- NOTE | 2023-05-26 10:15 | WPDPFTINT ---
PFT Procedure Performed PFT Procedure Performed Spirometry with Pre/Post Bronchodilator Plethysmography (Lung Vol) Diffusing Cap (DLCO) Flow Vol Loop PFT Interpretation Lung volumes were measured with the body plethysmography method. Lung volumes are unremarkable. Spirometry showed normal expiratory flow rates and a normal FEV1 to FVC ratio 72%. Following administration of a bronchodilator there was no significant increase in the expiratory flow rates. Lung diffusion capacity is normal at 80% predicted. Flow-volume loop is unremarkable. Impression:. Spirometry, lung volumes, and lung diffusion capacity all within the normal range.
--- NOTE | 2023-05-26 10:16 | WPDSIXMINUTE ---
Six Minute Walk Procedure Procedure Performed Pulmonary Stress Test (6 min walk) Six Minute Walk Six Minute Walk: This 6 minute walk test was carried out with the patient breathing ambient air. The baseline pre-walk oxyhemoglobin saturation was 97%. The patient walked 457 m with no stops during testing. During the walk the oxyhemoglobin saturation remained 95% or higher. Impression: No evidence of oxyhemoglobin desaturation on this testing.
== END 2023-05-25 13:51 | disposition home or self-care (01) ==
LOC: ANHPFT 13:51
PROVIDERS: PCP Family Medicine; Visit Provider Nurse Practitioner Family
DX: R06.09 Other forms of dyspnea (principal)
CPT/HCPCS: 94060; 94618; 94726; 94729

== ENCOUNTER 2023-06-30 13:11 | Outpatient (CLI) | payer BC, SELFPAY ==
--- NOTE | 2023-06-30 13:25 | ECHO_ITS ---
Patient Info Name: Carrillo Whitley Age: 62 years : 1960 Gender: Male Ht: 69 in Wt: 180 lbs BSA: 2.01 m2 HR: 75 bpm BP: 160 / 85 mmHg Heart Rhythm: Sinus Rhythm Technical Quality: Good Exam Date: 06/30/2023 1:51 PM Exam Location: [facility] Patient Status: Outpatient Admit Date: 06/30/2023 Staff Ordering Physician: Antonio Pa APRN Owner Manager: Laura Sahu RDCS Attending Provider: Antonio Pa APRN Referring Physician: Thierno WEST; Exam Type: CA echo doppler color flow Study Info Indications - other form dyspean Complete two-dimensional, color flow and Doppler transthoracic echocardiogram is performed. Summary 1. Complete two-dimensional, color flow and Doppler transthoracic echocardiogram is performed. 2. Left ventricular chamber dimension is normal. 3. Left ventricular systolic function is normal, estimated at 60-65%. 4. The left ventricular diastolic function is abnormal. 5. E/e' 10 is mildly elevated. 6. There is trace tricuspid valve regurgitation. 7. No pulmonary hypertension, estimated pulmonary arterial systolic pressure is 9 mmHg. 8. There is trivial pericardial effusion. Left Ventricle E/e' 10 is mildly elevated. Left ventricular chamber dimension is normal. Left ventricular systolic function is normal, estimated at 60-65%. The left ventricular diastolic function is abnormal. Right Ventricle Right ventricular systolic function is normal and with normal TAPSE 2.1 cm. Right ventricular chamber dimension is normal. Left Atria Left atrial chamber dimension is normal. Right Atria Right atrial chamber dimension is normal. Aortic Valve The aortic valve is trileaflet. There is no aortic valve stenosis. There is no aortic valve regurgitation. Pulmonic Valve There is no pulmonic regurgitation. Mitral Valve There is no mitral valve stenosis. There is no mitral valve regurgitation. Tricuspid Valve There is trace tricuspid valve regurgitation. No pulmonary hypertension, estimated pulmonary arterial systolic pressure is 9 mmHg. Pericardium/Pleural There is trivial pericardial effusion. Inferior Vena Cava Normal inferior vena cava with >50% collapse upon inspiration consistent with normal right atrial pressure, 5 mmHg. Aorta The aortic root size at the sinus of Valsalva is normal. Left Ventricular Outflow Tract Name Value Normal LVOT 2D LVOT Diameter 2.1 cm LVOT Doppler LVOT Peak Gradient 1 mmHg LVOT Mean Gradient 1 mmHg LVOT VTI 13 cm LVOT VTI/AV VTI Ratio 0.5 LVOT Stroke Volume 45 ml LVOT CO 2.7 l/min LVOT CI 1.3 l/min/m2 Pulmonic Valve Name Value Normal RVOT Doppler RVOT Peak Gradient 0 mmHg PV Doppler
== END 2023-06-30 13:12 | disposition home or self-care (01) ==
PROVIDERS: PCP Family Medicine; Visit Provider Nurse Practitioner Family
DX: R06.09 Other forms of dyspnea (principal)
CPT/HCPCS: 93306

== ENCOUNTER 2023-08-16 15:20 | Emergency (ER) | payer OTHER, BC, SELFPAY ==
--- NOTE | ~2023-08-16 | XR_ITS ---
EXAMINATION: XR forearm LT 2V DATE: 08/16/2023 15:37 INDICATION: Left forearm pain and abrasion post fall TECHNIQUE: AP an lateral views of the left forearm were obtained. COMPARISON: none FINDINGS: Alignment is normal. No fracture. Mild osteoarthritis at the first carpal metacarpal and metacarpopha langeal joints. Small humeral enthesophyte at the medial epicondyle. Remaining profiled joint spaces appear normal. No left elbow joint effusion. Mild soft tissue swelling along the dorsal aspect of the mid left forearm. No radiopaque foreign bodies. IMPRESSION: 1. No radiopaque foreign bodies or acute osseous abnormality. Reviewed, dictated and finalized at location [facility]. [employer]
[2023-08-16 15:31] VITALS: BP 149/90; PULSE 80; RESP 16; TEMP 37.1; O2SAT 99
--- NOTE | 2023-08-16 16:00 | ED.UPPEXIN ---
HPI - Extremity Injury (Upper) General Chief Complaint: Extremity Injury, Upper Stated Complaint: Injured arm Time Seen by Provider: 08/16/23 16:00 Source: patient, RN notes reviewed and old records reviewed Mode of arrival: ambulatory Limitations: no limitations History of Present Illness HPI narrative: 62 year old male who presents to [facility] with complaints of injury to his left forearm today when he was pushing a cart with a heavy load up an incline and he lost apartment locator and cart pinned his left forearm. Patient has abrasion to left forearm and also tenderness to left forearm with no complaints of tingling or numbness to left arm or hand. Patient has full mobility of his left arm with strong pulses to his left arm tenderness on palpation to left mid forearm. MD complaint: injury to: left and forearm Onset (ago): hour(s) (today) Place: work Severity scale (1-10): 4 Treatments prior to arrival: other (none) Related Data Home Medications Medication Instructions Recorded Confirmed No Home Medications 05/04/23 05/04/23 Allergies Allergy/AdvReac Type Severity Reaction Status Date / Time No Known Allergies Allergy Mild Verified 05/04/23 07:44 Review of Systems Review of Systems: CONSTITUTIONAL: Denies fever, chills, or sweats. EYES: Denies visual changes, redness, or discharge. ENT: Denies rhinorrhea, congestion, sore throat, or otalgia. CARDIOVASCULAR: Denies chest pain, palpitations, or edema. RESPIRATORY: Denies cough or dyspnea. GASTROINTESTINAL: Denies abdominal pain, nausea, vomiting, or diarrhea. GENITOURINARY: Denies dysuria or hematuria. SKIN: Denies rash or itching.Abrasion to left forearm no active bleeding MUSCULOSKELETAL: Denies any acute back pain, reports pain to left forearm, or myalgia. NEUROLOGIC: Denies headache, numbness, or weakness. PSYCHIATRIC: Denies anxiety or depression. All systems reviewed & are unremarkable except as noted in HPI and below PMFSH Past Medical History Medical History (Updated 08/18/23 @ 09:52 by Michelle John NP) BMI 25.0-25.9,adult BMI 26.0-26.9,adult BMI 27.0-27.9,adult Calculus of distal left ureter History of kidney stones Hyperlipidemia Hypertension Family History Family History Grandparent Family history of malignant neoplasm of breast Father Lung cancer COPD (chronic obstructive pulmonary disease) Bladder cancer Mother H/O cancer of gall bladder Sibling No problems noted. 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 There is no relevant family history pertinent to the presenting complaint Exam Narrative: GENERAL: Well-appearing, well-nourished, and in mild acute distress. HEAD: Normocephalic, atraumatic. EYES: PERRLA and EOMI. ENT: Nares clear, no rhinorrhea or epistaxis. Mucous membranes moist. NECK: Supple.no lymphadenopathy CHEST: Clear to auscultation. No respiratory distress.SAO2 100% on room air HEART: Regular rate and rhythm. No murmur heard. Normal peripheral pulses. ABDOMEN: Soft, nontender, nondist
== END 2023-08-16 16:28 | disposition home or self-care (01) ==
PROVIDERS: Emergency Provider Registered Nurse; PCP Family Medicine
DX: S50.12XA Contusion of left forearm, initial encounter (principal); E78.5 Hyperlipidemia, unspecified; I10 Essential (primary) hypertension; W20.8XXA Other cause of strike by thrown, projected or falling object, initial encounter
CPT/HCPCS: 73090; 99213; G0463

== ENCOUNTER 2023-08-30 07:26 | Outpatient (CLI) | payer BC, SELFPAY ==
--- NOTE | ~2023-08-30 | CT_ITS ---
CT Scan of the Chest without Contrast: Clinical Indication: Lung nodule Technique: Contiguous sections were acquired throughout the chest without intravenous contrast. Dose reduction technique was used on this scan by utilizing automated exposure control and iterative recon struction technique. The dose-length product (DLP) was 126.77 mGy-cm. COMPARISON: 09/17/2022 Findings: There is no evidence of any significant mediastinal, hilar or axillary lymphadenopathy. The mediastin al soft tissues appear normal. There is no evidence of pleural or pericardial effusion. Stable 3 mm nodule at the left lung base noted (axial image 104). Stable 2 mm left upper lobe pulmona ry nodule (axial image 46). Images through the upper abdomen reveal no abnormalities. Impression: Stable subcentimeter pulmonary nodules, most likely benign. Reviewed, dictated and finalized at [facility]. EEPER Impression: Stable subcentimeter pulmonary nodules, most likely benign.
== END 2023-08-30 07:27 | disposition home or self-care (01) ==
LOC: ANHIMG 07:29
PROVIDERS: PCP Family Medicine; Visit Provider Nurse Practitioner Family
DX: R91.8 Other nonspecific abnormal finding of lung field (principal)
CPT/HCPCS: 71250

== ENCOUNTER 2024-01-05 08:21 | Emergency (ER) | payer MEDICARE, OTHER, SELFPAY ==
--- NOTE | ~2024-01-05 | XR_ITS ---
EXAMINATION: XR lumbar spine min 4V DATE: 01/05/2024 09:00 INDICATION: Nontraumatic low back pain TECHNIQUE: Anteroposterior, lateral, and bilateral oblique views of the lumbar spine, and cone-down l ateral view of the lumbosacral junction were obtained. COMPARISON: CT abdomen and pelvis dated 04/05/2023 FINDINGS: Alignment is normal. Vertebral body and disc heights are normal. Multilevel bilateral facet osteoarth ritis, severe bilaterally at L4-L5, moderate bilaterally at L5-S1 and mild in the more cephalad lumba r spine. No pars interarticularis defects. Moderate bilateral sacroiliac osteoarthritis. Sacral arche s are intact. No fractures identified. IMPRESSION: 1. Moderate bilateral sacroiliac and moderate to severe lower lumbar facet osteoarthritis. Reviewed, dictated and finalized at location A. IMPRESSION: 1. Moderate bilateral sacroiliac and moderate to severe lower lumbar facet oste oarthritis.
[2024-01-05 08:34] VITALS: BP 127/71; PULSE 71; RESP 20; TEMP 36.5; O2SAT 100
--- NOTE | 2024-01-05 08:44 | ED.BACK ---
HPI - Back Pain/Injury General Chief Complaint: Back Pain/Injury Stated Complaint: Lower back pain Time Seen by Provider: 01/05/24 08:35 Source: patient Mode of arrival: ambulatory Limitations: no limitations History of Present Illness HPI Narrative: 63 y/o male presented for c/o mid lower back pain x2 days. States 2 days prior to the pain he had been doing yard work. Denies known injury. Rates pain 3-4/10. Worse when bending over to tie shoes or from sitting to standing position. Denies pain radiating into the hips or legs, numbness, tingling, weakness of the lower extremities, or change in gait, saddle paresthesia or loss of bowel or bladder. Took ibuprofen and ketoralac from . Related Data Home Medications Medication Instructions Recorded Confirmed aspirin 81 mg chewable tablet 81 mg PO DAILY 09/10/23 09/10/23 lisinopril 20 mg tablet 20 mg PO DAILY 09/10/23 09/10/23 rosuvastatin 20 mg tablet 20 mg PO DAILY 09/10/23 09/10/23 cetirizine 10 mg tablet (Zyrtec) 10 mg PO DAILY 01/05/24 01/05/24 scopolamine base 1 mg over 3 days 1 patch transdermal Q3D 01/05/24 transdermal patch Allergies Allergy/AdvReac Type Severity Reaction Status Date / Time Latex, Natural Rubber Allergy Intermediate Rash Verified 01/05/24 08:34 Review of Systems Review of Systems: CONSTITUTIONAL: Denies body aches, fever, chills EYES: Denies visual changes CARDIOVASCULAR: Denies chest pain, palpitations, or edema. RESPIRATORY: Denies cough or dyspnea. GASTROINTESTINAL: Denies abdominal pain, nausea, vomiting, or diarrhea. Denies flank pain. SKIN: Denies rash, itching, or wounds. MUSCULOSKELETAL: reports back pain NEUROLOGIC: Denies headache, numbness, tingling, or weakness. All systems reviewed & are unremarkable except as noted in HPI and below PMFSH Past Medical History Medical History BMI 25.0-25.9,adult BMI 26.0-26.9,adult BMI 27.0-27.9,adult Calculus of distal left ureter History of kidney stones Hyperlipidemia Hypertension Family History Family History Grandparent Family history of malignant neoplasm of breast Father Lung cancer COPD (chronic obstructive pulmonary disease) Bladder cancer Mother H/O cancer of gall bladder Sibling No problems noted. 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 Please see nursing chart for further information. There is no relevant family history pertinent to the presenting complaint Exam Narrative: GENERAL: Well-appearing NECK: Supple. full ROM CHEST: Speaks in full sentences. No respiratory distress. HEART: Regular rate and rhythm. Normal and equal peripheral pulses. MUSC: Mild left para spinal tenderness approx L3 level. No Vertebral point tenderness or step off. BLEs with normal strength and sensation, normal range of motion. Endorses subjective pain with certain movement sitting to stand. No ecchymosis, rash, open wounds, or obvious deformity; alignment
== END 2024-01-05 09:30 | disposition home or self-care (01) ==
PROVIDERS: Emergency Provider Nurse Practitioner Family; PCP Family Medicine
DX: S39.012A Strain of muscle, fascia and tendon of lower back, initial encounter (principal); X58.XXXA Exposure to other specified factors, initial encounter; E78.5 Hyperlipidemia, unspecified; I10 Essential (primary) hypertension; Z79.82 Long term (current) use of aspirin
CPT/HCPCS: 72110; 99213; G0463

== ENCOUNTER 2024-02-04 17:09 | Emergency (ER) | payer MEDICARE, OTHER, SELFPAY ==
[2024-02-04 17:19] VITALS: BP 136/90; PULSE 93; RESP 16; TEMP 37.1; O2SAT 99
--- NOTE | 2024-02-04 17:21 | ED.URI ---
HPI - URI/Sore Throat General Chief Complaint: Upper Respiratory Infection Stated Complaint: Cough Time Seen by Provider: 02/04/24 17:21 Source: patient, RN notes reviewed and old records reviewed Mode of arrival: ambulatory Limitations: no limitations History of Present Illness HPI Narrative: 63-year-old male who presents to [facility] with complaints of 3 weeks ago going on a cruise and and another one of 's friends tested positive for COVID. He reports that he had one day of fever but he never tested for COVID. Patient reports that he had COVID in May of 2022 and he had long COVID and saw a carrier washer for awhile and had some nodules in his lungs which have not grown and actually some have decreased in size, He reports that he doesn't have to see carrier washer anymore, elicited complaint: cough, rhinorrhea and nasal congestion Pertinent past history: other ( long COVID ) Onset (ago): week(s) (3) Consistency: constant Severity: moderate Able to tolerate fluids by mouth: Yes Treatments prior to arrival: other (Zyrtec) Related Data Home Medications Medication Instructions Recorded Confirmed aspirin 81 mg chewable tablet 81 mg PO DAILY 09/10/23 02/04/24 lisinopril 20 mg tablet 20 mg PO DAILY 09/10/23 02/04/24 rosuvastatin 20 mg tablet 20 mg PO DAILY 09/10/23 02/04/24 cetirizine 10 mg tablet (Zyrtec) 10 mg PO DAILY 01/05/24 02/04/24 Allergies Allergy/AdvReac Type Severity Reaction Status Date / Time Latex, Natural Rubber Allergy Intermediate Rash Verified 02/04/24 17:17 Review of Systems Review of Systems: CONSTITUTIONAL: Denies malaise, chills, sweats, or recent fever. EYES: Denies visual changes, redness, or discharge. ENT: Reports rhinorrhea, congestion, no sinus pain, no otalgia and no sore throat. CARDIOVASCULAR: Denies chest pain, palpitations, or edema. RESPIRATORY: Reports cough.? Denies dyspnea. GASTROINTESTINAL: Denies abdominal pain, nausea, vomiting, diarrhea SKIN: Denies rash or itching. MUSCULOSKELETAL: Denies myalgia. NEUROLOGIC: Denies headache. All systems reviewed & are unremarkable except as noted in HPI and below PMFSH Past Medical History Medical History (Updated 02/04/24 @ 18:55 by Michelle John NP) BMI 25.0-25.9,adult BMI 26.0-26.9,adult BMI 27.0-27.9,adult Calculus of distal left ureter COVID-19 05/26/2022 History of kidney stones Hyperlipidemia Hypertension Family History Family History Grandparent Family history of malignant neoplasm of breast Father Lung cancer COPD (chronic obstructive pulmonary disease) Bladder cancer Mother H/O cancer of gall bladder Sibling No problems noted. 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 There is no relevant family history pertinent to the presenting complaint Exam Narrative: GENERAL: Well-appearing, well-nourished, and in no acute distress. HEAD: Normocephalic EYES: PERRLA, conjunctivae clear ENT: Nares clear, turbinates edematous and erythematous, cl
== END 2024-02-04 17:42 | disposition home or self-care (01) ==
PROVIDERS: Emergency Provider Registered Nurse; PCP Family Medicine
DX: J01.40 Acute pansinusitis, unspecified (principal); R05.1 Acute cough; E78.5 Hyperlipidemia, unspecified; I10 Essential (primary) hypertension; Z86.16 Personal history of COVID-19; Z79.82 Long term (current) use of aspirin
CPT/HCPCS: 99213; G0463